=== PATIENT | male | born 1945 | race Caucasian/White ===

== ENCOUNTER 2022-07-18 00:07 | Emergency (ER) | payer OTHER ==
[~2022-07-18] VITALS: Ht 170.2 cm; Wt 78.0 kg
--- NOTE | 2022-07-18 00:20 | NUR ---
[id number] FROM [facility] C/O MICHAEL KNEE AND BACK PAIN NO HEAD TRAUMA NOTED. PT A/OX4. TOLERATING R/A WELL WITH NO RESP DISTRESS. SAFETY MEASURES IN PLACE. CONNECTED PT TO POX AND MONITOR
[2022-07-18] MEDS ORDERED: IV NS 0.9% 1,000 ML BAG IV ONE (01:00)
--- NOTE | 2022-07-18 01:05 | NUR ---
PK #20G S/L BLOOD COLLECTED AND SENT TO LAB
--- NOTE | 2022-07-18 01:09 | NUR ---
PT TAKEN TO CT [facility]IA [facility]
[2022-07-18 01:52] LABS: BASOPHILS % (AUTO) 0.2 % (0.0-2.0); HEMATOCRIT 35 % (39-51); HEMOGLOBIN 11.3 g/dL (13.5-17.5); LYMPHOCYTES # (AUTO) 0.7 K/uL (0.8-4.8); LYMPHOCYTES % (AUTO) 4.2 % (20.0-44.0); MEAN CORPUSCULAR HGB CONC 33 g/dl (31.0-36.0); MEAN CORPUSCULAR VOLUME 102 fL (80-96); MONOCYTES # (AUTO) 1.5 K/uL (0.1-1.30); MONOCYTES % (AUTO) 8.8 % (2.0-12.0); NEUTROPHILS % (AUTO) 86.8 % (43.0-81.0); PLATELET COUNT (AUTO) 177 K/uL (150-450); RED BLOOD CELL COUNT(AUTO) 3.38 MIL/uL (4.5-6.0); WHITE BLOOD COUNT (AUTO) 17.3 K/uL (4.3-11.0)
[2022-07-18 02:01] LABS: CALCIUM, SERUM 9.3 mg/dL (8.5-10.1); CARBON DIOXIDE 25 mmol/L (21-32); CHLORIDE 107 mmol/L (98-107); CREATININE 1.1 mg/dL (0.6-1.3); GLUCOSE 107 mg/dL (74-106); POTASSIUM 3.6 mmol/L (3.5-5.1); SODIUM SERUM 140 mmol/L (136-145); UREA NITROGEN, BLOOD 26 mg/dL (7-18)
--- NOTE | 2022-07-18 02:01 | NUR ---
URINE COLLECTED AND SENT TO LAB
[2022-07-18 02:11] LABS: ALANINE AMINOTRANSFERASE 40 U/L (12-78); ALBUMIN 3.1 g/dL (3.4-5.0); ALKALINE PHOSPHATASE 56 U/L (46-116); ASPARTATE AMINOTRANSFERASE 29 U/L (15-37); BILIRUBIN,DIRECT 0.2 mg/dL (0.0-0.2); BILIRUBIN,TOTAL 0.5 mg/dL (0.2-1.0); TOTAL PROTEIN, SERUM 6.4 g/dL (6.4-8.2)
[2022-07-18 02:46] LABS: BILIRUBIN,URINE NEGATIVE (NEGATIVE); COLOR,URINE YELLOW (YELLOW); LEUKOCYTE ESTERASE ,URINE NEGATIVE (NEGATIVE); NITRITE, URINE NEGATIVE (NEGATIVE); PH,URINE 5.5 (5.0-8.0); PROTEIN,URINE 30 mg/dl (NEGATIVE); UGLUCOSE NEGATIVE (NEGATIVE)
[2022-07-18] MEDS ORDERED: HYDROCODONE/APAP 5/325MG TABLET ONE ×2 (02:59→12:03)
[2022-07-18] MEDS ORDERED: HYDROCODONE/APAP 5/325MG TABLET PO ONE ×2 (03:00→12:30)
--- NOTE | 2022-07-18 04:54 | NUR ---
[facility] PAGED PER DR MALDONADO.
--- NOTE | 2022-07-18 05:33 | NUR ---
COVID ANTIGEN SWAB COLLECTED AND SENT TO LAB
[2022-07-18] MEDS ORDERED: ASPIRIN 81 MG TAB.CHEW PO ONE (06:30)
[2022-07-18] MEDS ORDERED: ASPIRIN 81 MG TAB.CHEW ONE (06:31)
--- NOTE | 2022-07-18 08:30 | NUR ---
[facility]ED [facility]
--- NOTE | 2022-07-18 08:35 | NUR ---
DR. HARVEY SPEAKING WITH DR. DOTSON.
[2022-07-18 09:03] LABS: BAND % (MANUAL) 2 % (0.0-5.0); LYMPHOCYTES % (MANUAL) 2 % (16-48); MONOCYTES % (MANUAL) 12 % (0-11.0); NEUTROPHILS % (MANUAL) 84 (42-76)
--- NOTE | 2022-07-18 09:53 | NUR ---
ACCEPTED AT [facility] UNDER DR. BOSS [phone] FOR REPORT ETA [id number] WITH [facility].
--- NOTE | 2022-07-18 10:36 | NUR ---
REPORT GIVEN TO SACHA FOR [facility]
--- NOTE | 2022-07-18 11:57 | NUR ---
PICKED UP BY [facility] IN STABLE CONDITION
[2022-07-18 12:40] VITALS: BP 112/68
--- NOTE | 2022-07-18 12:43 | NUR ---
REPORT GIVEN TO [facility] [employer] OPERATOR, PT TRANSPORT IN STABLE CONDITION.
== END 2022-07-18 12:44 | disposition short-term general hospital (02) ==
LOC: EDBD 00:15 → ER 00:15
DX: S22.089A Unspecified fracture of T11-T12 vertebra, initial encounter for closed fracture (principal); S32.019A Unspecified fracture of first lumbar vertebra, initial encounter for closed fracture; S32.029A Unspecified fracture of second lumbar vertebra, initial encounter for closed fracture; S32.039A Unspecified fracture of third lumbar vertebra, initial encounter for closed fracture; W19.XXXA Unspecified fall, initial encounter; Y92.89 Other specified places as the place of occurrence of the external cause; Z20.822 Contact with and (suspected) exposure to COVID-19; C79.9 Secondary malignant neoplasm of unspecified site; M89.552 Osteolysis, left thigh; D72.829 Elevated white blood cell count, unspecified; I47.1 Supraventricular tachycardia
CPT/HCPCS: 99285; 96360; 93005; 71045; 72131; 85025; 80048; 80076; 85007; 81003; 36415; 84484 ×2; 85730; 82962; 87426; 80320; 80307; J7030; C9803; G0480